=== PATIENT | male | born 1995 | race Hispanic/Latino ===

== ENCOUNTER 2024-08-04 09:30 | Emergency (ER) | payer OTHER ==
[~2024-08-04] VITALS: Ht 177.8 cm; Wt 213.2 kg
[2024-08-04] MEDS: ketOROlac 30MG VIAL (30MG/ML) IM ONE (10:44)
[2024-08-04 10:49] VITALS: BP 156/88; PULSE 90; RESP 16; TEMP 97.9; O2SAT 99
== END 2024-08-04 11:13 | disposition home or self-care (01) ==
LOC: EDH 09:30
DX: S01.81XA Laceration without foreign body of other part of head, initial encounter (principal); Z90.49 Acquired absence of other specified parts of digestive tract; W20.8XXA Other cause of strike by thrown, projected or falling object, initial encounter; Y93.89 Activity, other specified; Y92.89 Other specified places as the place of occurrence of the external cause; Y99.8 Other external cause status
CPT/HCPCS: 99283; 12013; 96372; J1885; 90471